=== PATIENT | male | born 1955 | race Caucasian/White ===

== ENCOUNTER → 2019-01-20 | Outpatient (REF) ==
[~2019-01-20] MED LIST: ATENOLOL50 MG PO; DOXAZOSIN2 MG PO; NIACIN1000 MG PO; NORVASC 10MG10 MG PO; VYTORIN 10 MG-41 TAB PO
== END ==
LOC: ZLAB.WCH 17:39
DX: Z01.89 Encounter for other specified special examinations (principal)